=== PATIENT | male | born 1990 | race African-American/Black ===

== ENCOUNTER 2019-06-08 20:42 | Emergency (ER) | payer OTHER ==
[~2019-06-08] VITALS: Ht 182.9 cm; Wt 87.7 kg
[2019-06-08 20:42] VITALS: BP 123/62
== END 2019-06-08 21:57 | disposition home or self-care (01) ==
LOC: M ED 20:42
DX: S61.231A Puncture wound without foreign body of left index finger without damage to nail, initial encounter (principal); W26.8XXA Contact with other sharp object(s), not elsewhere classified, initial encounter; Y92.018 Other place in single-family (private) house as the place of occurrence of the external cause; F17.210 Nicotine dependence, cigarettes, uncomplicated

== ENCOUNTER 2021-03-12 10:12 | Emergency (ER) | payer OTHER ==
[~2021-03-12] VITALS: Ht 182.9 cm; Wt 88.7 kg
[2021-03-12] MEDS ORDERED: TRAM50TA2 (11:09)
[2021-03-12 12:05] LABS: RSV AMPLIFICATION NEGATIVE (NEGATIVE)
[2021-03-12 15:17] VITALS: O2SAT 98
[2021-03-12 15:36] LABS: BASO # 0.1 10^3/uL (0.0-0.2); BASO % 0.2 % (0.0-1.0); HEMATOCRIT 44.9 % (42.0-52.0); HEMOGLOBIN 14.8 g/dl (13.5-17.5); LYMPH # 1.5 10^3/uL (1.5-5.0); MEAN CORPUSCULAR VOLUME 78.9 fl (80.0-96.0); MONO # 1.1 10^3/uL (0.0-0.8); MONO % 5.1 % (2.0-8.0); NEUTROPHILS # 18.7 10^3/uL (1.5-8.5); NEUTROPHILS % 86.5 % (36.0-66.0); PLATELET COUNT, AUTOMATED 255 10^3/uL (150-450); RED BLOOD COUNT 5.69 10^6/uL (4.30-6.10); WHITE BLOOD COUNT 21.6 10^3/uL (4.0-10.0)
[2021-03-12] MEDS ORDERED: NS 1,000 ML IV ONE (15:40)
[2021-03-12] MEDS ORDERED: AZITHROMYCIN INJ 500 MG, VIAL MATE ADAPTER 1 EACH in NS 250 ML IV ONE (15:40)
[2021-03-12] MEDS ORDERED: cefTRIAXone SOD 1 GM in D5W MINI-BAG PLUS 50 ML IV ONE (15:40)
[2021-03-12 16:02] LABS: ALBUMIN 3.7 GM/DL (3.2-5.2); ALT/SGPT 22 U/L (12-78); BILIRUBIN,DIRECT 0.2 MG/DL (0.0-0.2); BILIRUBIN,TOTAL 0.7 MG/DL (0.2-1.0); BLOOD UREA NITROGEN 13 MG/DL (7-18); CARBON DIOXIDE LEVEL 33 MEQ/L (21-32); CHLORIDE LEVEL 101 MEQ/L (98-107); GLOMERULAR FILTRATION RATE > 60.0 (>60); GLUCOSE, FASTING 95 MG/DL (70-100); LIPASE 26 U/L (73-393); POTASSIUM SERUM 3.9 MEQ/L (3.5-5.1); SODIUM LEVEL 138 MEQ/L (136-145); TOTAL PROTEIN 7.6 GM/DL (6.4-8.2)
[2021-03-12] MEDS ORDERED: DOXY-443 PO (16:06)
[2021-03-12] MEDS ORDERED: ONDANSETRON 4MG/2ML VIAL IV ONE (16:50)
[2021-03-12] MEDS ORDERED: ZITHTAB PO (18:22)
[2021-03-12] MEDS ORDERED: AMOX500T PO (18:22)
[2021-03-12] MEDS ORDERED: ONDA4TAB6 PO (18:24)
[2021-03-12 18:53] VITALS: BP 129/67
== END 2021-03-12 18:57 | disposition home or self-care (01) ==
LOC: M ED 10:12
DX: J18.1 Lobar pneumonia, unspecified organism (principal)
CPT/HCPCS: 36415; 71046; 80048; 80076; 83605; 83690; 85025; 87040; 87631; 96365; 96367; 96375; 99284; J0456; J0696; J2405